=== PATIENT | female | born 1980 | race Caucasian/White ===

== ENCOUNTER → 2020-03-13 | Outpatient (CLI) | payer SELFPAY | LOC: M LABSMTC 12:17 | PROVIDERS: ATTEND Pediatrics | DX: Z20.822 Contact with and (suspected) exposure to COVID-19 (principal) ==

== ENCOUNTER 2020-09-22 12:25 | Emergency (ER) | payer SELFPAY ==
[~2020-09-22] VITALS: Ht 167.6 cm; Wt 68.2 kg
[2020-09-22 12:26] VITALS: BP 155/80
== END 2020-09-22 13:40 | disposition left against medical advice (07) ==
LOC: M ED 12:25
DX: Z53.29 Procedure and treatment not carried out because of patient's decision for other reasons (principal)

== ENCOUNTER 2020-12-26 13:51 | Emergency (ER) | payer OTHER, SELFPAY ==
[~2020-12-26] VITALS: Ht 170.2 cm; Wt 68.2 kg
--- NOTE | 2020-12-26 17:21 | REP ---
INDICATION: pain, repetative motion injury COMPARISON: None. TECHNIQUE: AP, lateral, bilateral oblique views of the left elbow. FINDINGS: No acute fracture or dislocation is appreciated. Joint spaces and surrounding soft tissues appear normal. Lateral view demonstrates normal positioning to the anterior and posterior fat pads without evidence for effusion/hemarthrosis. No subcutaneous emphysema or foreign body identified. IMPRESSION: Normal elbow radiographs. <Electronically signed by Scott Daniels > 12/26/20 [id number]
--- OUTSIDE RECORDS SUMMARY | 2020-12-26 17:49 | CCD ---
Author Author [facility] Address Unknown Phone Unavailable Support Name Relationship Address Phone [place] [address] Next Of Kin Unknown Unavailable Re-disclosure Warning The records that you are about to access may contain information from federally-assisted alcohol or drug abuse programs. If such information is present, then the following federally mandated warning applies: This information has been disclosed to you from records protected by federal confidentiality rules (42 CFR part 2). The federal rules prohibit you from making any further disclosure of this information unless further disclosure is expressly permitted by the written consent of the person to whom it pertains or as otherwise permitted by 42 CFR part 2. A general authorization for the release of medical or other information is NOT sufficient for this purpose. The Federal rules restrict any use of the information to criminally investigate or prosecute any alcohol or drug abuse patient.The records that you are about to access may contain highly sensitive health information, the redisclosure of which is protected by Article 27-F of the [facility] Public Health law. If you continue you may have access to information: Regarding HIV / AIDS; Provided by facilities licensed or operated by the [facility] Office of Mental Health; or Provided by the [facility] Office for People With Developmental Disabilities. If such information is present, then the following [facility] mandated warning applies: This information has been disclosed to you from confidential records which are protected by state law. State law prohibits you from making any further disclosure of this information without the specific written consent of the person to whom it pertains, or as otherwise permitted by law. Any unauthorized further disclosure in violation of state law may result in a fine or group home sentence or both. A general authorization for the release of medical or other information is NOT sufficient authorization for further disc losure. Medications No Information Insurance Providers Payer name Policy type / Coverage type Policy ID Covered constitution party ID Covered constitution party's relationship to adan Policy Adan Plan Information [facility] [id number] SELF PAY ONLY [id number] SP [id number] SELF PAY ONLY 01 SP 01 Problems, Conditions, and Diagnoses No Information Surgeries/Procedures No Information Results ID Date Data Source [id number] 03/13/2020 12:00:00 AM EST [facility] Name Value Range Interpretation Code Description Data Cyndy rce(s) Supporting Document(s) SARS-CoV-2 (COVID-19) RNA [Presence] in Respiratory specimen by JEFF with probe detection Not Detected [facility] This lab was ordered by [facility] and reported by [employer] Procedure Social History No Information
--- NOTE | 2020-12-26 18:31 | REPVR ---
PROCEDURE INFORMATION: Exam: US Duplex Left Upper Extremity Veins, Limited Exam date and time: 12/26/2020 5:33 PM Age: 40 years old Clinical indication: Pain; Arm, upper; Left; Additional info: Pain R/O dvt TECHNIQUE: Imaging protocol: Real-time Duplex ultrasound of the Left Upper Extremity with 2-D muñiz scale, color Doppler flow and spectral waveform analysis with image documentation. Limited exam focused on the left upper extremity veins. COMPARISON: CR Elbow, complete 12/26/2020 5:05 PM FINDINGS: Left deep veins: Unremarkable. Axillary and brachial veins are patent throughout without thrombus. Normal Doppler waveforms. Normal compressibility and/or augmentation response. Visualized internal jugular and subclavian veins are patent. Left superficial veins: Unremarkable. Visualized cephalic and basilic veins are patent without thrombus. Soft tissues: Unremarkable. IMPRESSION: No evidence of deep vein thrombosis. Electronically signed by: Edvin Case On 12/26/2020 18:31:23 PM
[2020-12-26 19:10] VITALS: BP 113/80
== END 2020-12-26 19:27 | disposition home or self-care (01) ==
LOC: M ED 13:51
DX: M77.8 Other enthesopathies, not elsewhere classified (principal); F17.210 Nicotine dependence, cigarettes, uncomplicated